=== PATIENT | male | born 1985 | race African-American/Black ===

== ENCOUNTER 2017-04-05 03:35 | Emergency (ER) | payer OTHER ==
--- NOTE | ~2017-04-05 | CR72 ---
[facility] A Service of [facility] & [facility] RADIOLOGY TEXT RESULTS PATIENT: RADHA MOYER LOCATION: [facility] : 83 UNIT #: [id number] AGE: [address]: Trevon Fried MD SEX: M ORDER DR: [id number] [facility] [address] [place], [place] [address] [id number] E MR#: [id number] Acc #: [id number] NAME: RADHA MOYER : 1985 SEX: M STUDY DATE/TIME: 04/05/2017 4:16 UNIT: [facility] ROOM: STUDY DESCRIPTION: CR Chest Single View Portable Attending Physician: Trevon Fried M.D. Ordering Physician: Trevon Fried M.D. Primary Care Physician: Bill Hall Pa-C MEDICAL IMAGING REPORT This report is preliminary unless electronic signature is present EXAM Single-view chest. INDICATION Shortness of air for 1 day. Asthma. TECHNIQUE Single, portable, AP view of the chest compared to 03/21/2012. FINDINGS Heart and mediastinal contour is normal. Lungs are clear. IMPRESSION Negative chest radiograph. Dictated by... Felton Bradley M.D. THIS IS AN ELECTRONICALLY VERIFIED REPORT Felton Bradley M.D. at 04/05/2017 10:30 PM HAYDEN/true TD: 04/05/2017 13:38 JOB #: [id number] MEDICAL IMAGING REPORT Page 1 of 1 COPY
[~2017-04-05 03:35] MED LIST: ALBUTEROL17 GM INH; PREDNISONE PO; TAMIFLU75 MG PO
== END 2017-04-05 04:50 | disposition home or self-care (01) ==
LOC: CED 03:35
DX: R06.02 Shortness of breath (principal); J30.9 Allergic rhinitis, unspecified; J45.909 Unspecified asthma, uncomplicated; Z79.899 Other long term (current) drug therapy
CPT/HCPCS: 71010; 99284